=== PATIENT | female | born 1985 | race Caucasian/White ===

== ENCOUNTER → 2023-05-16 02:27 | Outpatient (CLI) | payer BC, SELFPAY | PROVIDERS: Referring Provider Family Medicine; Visit Provider Family Medicine | DX: Z23 Encounter for immunization (principal) | CPT/HCPCS: 90471; 90686 ==

== ENCOUNTER 2023-07-08 23:43 | Emergency (ER) | payer BC, SELFPAY ==
[2023-07-09 00:24] VITALS: BP 153/72; PULSE 74; RESP 16; TEMP 36.8; O2SAT 98; BMI 30.4
--- NOTE | 2023-07-09 00:30 | DI.RAD.S_ITS ---
PROCEDURE: XR FINGER LT MIN 2V INDICATIONS: dog bite to finger with pain TECHNIQUE: AP hand, 2 views of the for finger(s) acquired. COMPARISON: None. FINDINGS: Bones: No displaced fracture. No dislocation. Questionable lucency at the distal tuft. Soft tissues: No suspicious calcifications. IMPRESSION: There is a questionable lucency at the 4th distal tuft representing a nondisplaced injury versus artifact, correlate with tenderness. No displaced fracture or dislocation. Dictated by: All Haynes M.D. on 07/09/2023 at 0:51 Approved by: All Haynes M.D. on 07/09/2023 at 0:53
--- NOTE | 2023-07-09 01:16 | ED_ITS ---
HPI - Animal Bite General Chief Complaint: Animal Bite Stated Complaint: dog bite left hand rt back thigh Time Seen by Provider: 07/08/23 23:46 Source: patient Mode of arrival: Ambulatory History of Present Illness HPI narrative: Otherwise healthy 37-year-old woman was trying to separate her 2 dogs that were fighting. One dog accidentally bit her with small puncture wound on the palmar surface of the left 4th finger mid D IP and a small puncture wound lateral aspect of the right thigh. Neither wound is large enough to require any type of repair. Both clean. She has a subungual hematoma appreciated under the nail left 4th finger. No other complaints at this time Related Data Previous Rx's Medication Instructions Recorded amoxicillin 875 mg-potassium 1 tab PO BID #14 tabs 07/09/23 clavulanate 125 mg tablet Allergies Allergy/AdvReac Type Severity Reaction Status Date / Time No Known Drug Allergies Allergy Verified 07/09/23 00:29 Review of Systems Review of Systems Narrative: Pertinent positive and negative findings as per HPI Patient History Social History Smoking Status: Never smoker Smoking Status: Never smoker Substance Use Type: marijuana Exam Initial Vital Signs Initial Vital Signs: Vital Signs Temperature 98.2 F 07/09/23 00:24 Pulse Rate 74 07/09/23 00:24 Respiratory Rate 16 07/09/23 00:24 Blood Pressure 153/72 H 07/09/23 00:24 Pulse Oximetry 98 07/09/23 00:24 Oxygen Delivery Method Room Air 07/09/23 00:24 General: Alert appropriate in pain but able to cooperate fully Respiratory: Able to speak in full sentences, no obvious respiratory distress Skin: No obvious rashes, warm and dry. She has a small puncture wound to the lateral aspect right thigh. No surrounding erythema. This does not need repair. Neurologic: Grossly intact no obvious asymmetries or abnormalities Psych: appropriate insight and affect, cooperative Extremity: She has a small puncture wound on the palmar surface PIP left 4th finger. Associated subungual hematoma. Using an 18 gauge needle a small hole is made at the base of the fingernail to release some of the pressure from the subungual hematoma. Procedures Nail Trephination Time of procedure: 01:36 Location (finger): left and ring Method of drainage: needle Procedure successful: Yes Patient tolerated procedure: well Course Orders Ordered: ED Orders 07/09/23 00:30 XR finger LT min 2V Stat Vital Signs Vital signs: Vital Signs - 8 hr 07/09/23 00:24 Temperature 98.2 F Pulse Rate 74 Respiratory Rate 16 Blood Pressure 153/72 H Pulse Oximetry 98 Oxygen Delivery Method Room Air MDM - Animal Bite MDM Narrative Medical decision making narrative: CC: Dog bite Data collected from: patient Differential considered: Dog bite with underlying fracture, infection, laceration, deeper tissue involvement Exam documented above, pertinent findings include: Her left ring finger is significantly tender. After the pressures removed finger is feeling much better. Treatments: Oral Augmentin, ibuprofen and Percocet. Using an 18 gauge needle a small puncture wound is made at the base of her left ring finger to allow some of the blood under the fingernail to escape. Discussion: 37-year-old woman with 2 small puncture wounds from dog bite, her own dog who is up-to-date on immunizations. Neither of these need additional repair. The subungual hematoma is partially drained. We discussed pain control, anticipated course of recovery and need for antibiotics. Questions are answered and she is safe for discharge Discharge Plan Departure Patient Disposition: Home Clinical Impression: Bite by animal Subungual hematoma of finger of left hand Qualifiers: Encounter type: initial encounter Qualified Code(s): S60.10XA - Contusion of unspecified finger with damage to nail, initial encounter Instructions: DI for Nail Bed Injury, DI for Dog Bite Activity Restrictions/Additional Instructions: Thank you for coming in today Fortunately the 2 puncture wounds 1 on your left ring finger and 1 on the right thigh are going to heal nicely. Because this is a dog bite and they are puncture wounds, I am not going to recommend that we close the wounds, they do need to drain. I am going to recommend 7 days of Augmentin, an antibiotic, to prevent infection The prescription was electronically transmitted to [facility] in [place] With blood clot under your fingernail, I used a small needle to make a tiny hole in the fingernail itself and much of the blood causing the pressure easily drained. Without much blood in and around the nail bed, this fingernail may stop growing and a new 1 will growing underneath it. I suspect that there will be minimal change overall to the fingernail as it grows out as the damage was mainly from the underside and more hematoma rather than nail bed disruption. I do not think that you have a finger fracture from the bite. Using 400 mg of ibuprofen (2 [id number] pills) and 1 Tylenol every 6 hours can be very helpful in controlling pain. If you are hand is throbbing, keep it elevated above the level of your heart If you find that either site is becoming more red, draining or you developing new problems you do need to return to the emergency department Prescriptions: New amoxicillin-pot clavulanate 875-125 mg tablet 1 tab PO BID Qty: 14 0RF Stand Alone Forms: Patient Portal/API
[2023-07-09 01:31] VITALS: BP 115/81; PULSE 65; RESP 18; O2SAT 96
[2023-07-09] MEDS: OXYCODONE/ACETAMINOPHEN 5/325 TABLET 1 TAB PO (01:33)
[2023-07-09] MEDS: IBUPROFEN 400 MG TABLET PO (01:33)
[2023-07-09] MEDS: AMOXICILLIN/CLAV 875/125 MG 1 TAB PO (01:33)
== END 2023-07-09 01:39 | disposition home or self-care (01) ==
PROVIDERS: Emergency Provider Emergency Medicine
DX: S60.142A Contusion of left ring finger with damage to nail, initial encounter (principal); W54.0XXA Bitten by dog, initial encounter
CPT/HCPCS: 10140; 73140; 99283

== ENCOUNTER → 2025-04-28 15:16 | Outpatient (CLI) | payer BC, SELFPAY ==
[2025-04-28 20:49] LABS: Urine N gonorrhoeae NOT DETECTED
[2025-04-28 21:20] LABS: Urine Chlamydia NOT DETECTED
== END ==
PROVIDERS: PCP Family Medicine; Visit Provider Obstetrics & Gynecology
DX: Z11.3 Encounter for screening for infections with a predominantly sexual mode of transmission (principal)
CPT/HCPCS: 87491; 87591

== ENCOUNTER → 2025-05-27 08:46 | Outpatient (CLI) | payer BC, SELFPAY ==
[2025-05-27 10:07] LABS: Add Manual Diff / Slide Review NO; Hematocrit 37.3 % (36-46); Hemoglobin 12.6 g/dL (12.0-16.0); Lymphocytes Absolute Auto 1500 /uL (1100-4500); Mean Corpuscular HGB Conc 33.8 % (30-36); Mean Corpuscular Hemoglobin 28.6 PG (26-34); Mean Corpuscular Volume 84.6 fL (80-100); Platelet Count 249 X10^3/uL (150-400)
[2025-05-27 10:17] LABS: Hemoglobin A1C% w Est Avg Glu 4.9 % (4.0-6.0)
[2025-05-27 10:59] LABS: Hepatitis B Surface Antigen NEGATIVE s/c (NEGATIVE)
[2025-05-27 11:00] LABS: Natera Collection Specimen Collected
[2025-05-27 11:16] LABS: HIV 1 & 2 Ab/Ag 4th Gen Combo NEGATIVE (NEGATIVE); Hep C Virus Ab w/Reflex Quant NEGATIVE s/c (NEGATIVE)
== END ==
PROVIDERS: PCP Family Medicine; Referring Provider Obstetrics & Gynecology; Visit Provider Obstetrics & Gynecology
DX: O09.511 Supervision of elderly primigravida, first trimester (principal)
CPT/HCPCS: 36415; 80055; 83036; 86787; 86803; 86850; 86900; 86901; 87086; 87389

== ENCOUNTER → 2025-06-23 16:12 | Outpatient (CLI) | payer BC, SELFPAY | LOC: LAB 16:13 | PROVIDERS: PCP Family Medicine; Referring Provider Obstetrics & Gynecology; Visit Provider Obstetrics & Gynecology | DX: Z36.0 Encounter for antenatal screening for chromosomal anomalies (principal) | CPT/HCPCS: 36415; 82105 ==